=== PATIENT | male | born 1980 | race Caucasian/White ===

== ENCOUNTER 2018-04-20 05:44 | Emergency (ER) | payer BC ==
[2018-04-20] MEDS: PANTOPRAZOLE 40MG INJ (PROTONIX) (C9113) IV (06:45)
[2018-04-20] MEDS: GI COCKTAIL 50ML BTL(HYOSCYAMINE/MAALOX/LIDOCAINE VISCOUS)(1:3:1) PO (06:45)
[2018-04-20 06:52] LABS: BASO # 0.1 10^3/uL (0.0-0.2); EOS # 0.1 10^3/uL (0.0-0.50); EOS % 1.7 % (0.0-3.0); HEMATOCRIT 48.1 % (42.0-52.0); HEMOGLOBIN 17.2 g/dl (13.5-17.5); IMMATURE GRANULOCYTE % 0.2 % (0-3.0); LYMPH # 2.1 10^3/uL (1.5-4.5); LYMPH % 43.2 % (24.0-44.0); MEAN CORPUSCULAR HEMOGLOBIN 31.3 pg (27.0-33.0); MEAN CORPUSCULAR HGB CONC 35.8 g/dl (32.0-36.5); MEAN CORPUSCULAR VOLUME 87.6 fl (80.0-96.0); MONO # 0.4 10^3/uL (0.0-0.8); MONO % 8.3 % (0.0-5.0); NEUTROPHILS # 2.2 10^3/uL (1.8-7.7); NEUTROPHILS % 45.6 % (36.0-66.0); PLATELET COUNT, AUTOMATED 212 10^3/uL (150-450); RED BLOOD COUNT 5.49 10^6/uL (4.30-6.10); RED CELL DISTRIBUTION WIDTH 11.8 % (11.5-14.5); WHITE BLOOD COUNT 4.8 10^3/uL (4.0-10.0)
[2018-04-20 07:04] LABS: ALBUMIN 4.1 GM/DL (3.2-5.2); ALBUMIN/GLOBULIN RATIO 1.21 (1.00-1.93); ALKALINE PHOSPHATASE 51 U/L (45-117); ALT/SGPT 28 U/L (12-78); ANION GAP 8 MEQ/L (8-16); AST/SGOT 25 U/L (7-37); BILIRUBIN,DIRECT 0.2 MG/DL (0.0-0.2); BLOOD UREA NITROGEN 16 MG/DL (7-18); CALCIUM LEVEL 9.5 MG/DL (8.5-10.1); CARBON DIOXIDE LEVEL 28 MEQ/L (21-32); CHLORIDE LEVEL 106 MEQ/L (98-107); CPK CREATINE PHOSPHOKINASE 144 U/L (39-308); CREATININE FOR GFR 1.22 MG/DL (0.70-1.30); FREE T4 1.14 NG/DL (0.76-1.46); GLOMERULAR FILTRATION RATE > 60.0 (>60); GLUCOSE, FASTING 96 MG/DL (70-100); POTASSIUM SERUM 3.8 MEQ/L (3.5-5.1); SODIUM LEVEL 142 MEQ/L (136-145); TOTAL PROTEIN 7.5 GM/DL (6.4-8.2); TROPONIN I < 0.02 NG/ML (< 0.10)
[2018-04-20 07:10] LABS: CK-MB VALUE MASS 1.6 NG/ML (<3.6); MB/CK RELATIVE INDEX 1.11 (< OR =4)
== END 2018-04-20 07:39 | disposition home or self-care (01) ==
LOC: M ED 05:44
DX: K21.0 Gastro-esophageal reflux disease with esophagitis (principal); R94.31 Abnormal electrocardiogram [ECG] [EKG]; Z87.19 Personal history of other diseases of the digestive system; Z87.891 Personal history of nicotine dependence; Z88.0 Allergy status to penicillin; Z79.899 Other long term (current) drug therapy
CPT/HCPCS: C9113

== ENCOUNTER → 2018-09-17 | Outpatient (CLI) | payer BC ==
[~2018-09-17] MED LIST: OMEP40CA2 PO
--- NOTE | 2018-09-17 16:39 | REP ---
Chest two views HISTORY: Cough Comparison: None Patchy density is present in the left lower lobe consistent with an infiltrate. The right lung is clear. The heart is normal in size. The pulmonary vasculature is normal in appearance. The bony structure is intact. IMPRESSION: Left lower lobe infiltrate. Electronically Signed by Shaka Michel MD 09/17/2018 04:30 P
== END ==
LOC: M WUC 15:28
PROVIDERS: ATTEND Physician Assistant
DX: R91.8 Other nonspecific abnormal finding of lung field (principal); R05 Cough; R50.9 Fever, unspecified

== ENCOUNTER 2018-12-28 10:45 | Emergency (ER) | payer BC ==
[~2018-12-28] VITALS: Ht 182.9 cm; Wt 97.7 kg
[2018-12-28] MEDS ORDERED: IBUP200C27 PO (10:55)
[2018-12-28] MEDS ORDERED: ONDANSETRON 4 MG ORAL DISINTEGRATING TAB (Q0162 PER 1MG) PO ONE (11:15)
[2018-12-28] MEDS ORDERED: MECLIZINE 25 MG TABLET PO ONE (11:15)
--- NOTE | 2018-12-28 11:39 | REP ---
CT Head without contrast HISTORY: Headache COMPARISON: None There is no intraparenchymal hemorrhage, acute infarct, mass or midline shift. The ventricular system is normal in appearance. There is no extra cerebral collection. There is no fracture. The visualized sinuses are clear. IMPRESSION: There is no intracranial lesion. Electronically Signed by Shaka Michel MD 12/28/2018 11:30 A
[2018-12-28] MEDS ORDERED: FLON1SPR NARES (12:26)
[2018-12-28] MEDS ORDERED: IBUP80TA PO (12:26)
[2018-12-28] MEDS ORDERED: ONDA4TAB6 PO (12:26)
[2018-12-28] MEDS ORDERED: MECL-68 PO (12:26)
[2018-12-28] MEDS ORDERED: ZYRTTAB8 PO (12:26)
[2018-12-28 12:38] VITALS: BP 124/74
== END 2018-12-28 12:39 | disposition home or self-care (01) ==
LOC: M ED 10:45
DX: H81.399 Other peripheral vertigo, unspecified ear (principal); J30.9 Allergic rhinitis, unspecified; Z88.0 Allergy status to penicillin
CPT/HCPCS: 70450; 99284; Q0162

== ENCOUNTER → 2019-02-14 | Outpatient (CLI) | payer BC ==
[~2019-02-14] MED LIST changes: +FLON1SPR NARES; +IBUP200C27 PO; +IBUP80TA PO; +MECL-68 PO; +ONDA4TAB6 PO; +ZYRTTAB8 PO
[2019-02-14 17:56] LABS: EOS # 0.1 10^3/uL (0.0-0.50); EOS % 1.7 % (0.0-3.0); HEMATOCRIT 47.4 % (42.0-52.0); HEMOGLOBIN 16.2 g/dl (13.5-17.5); LYMPH % 48.2 % (24.0-44.0); MEAN CORPUSCULAR HEMOGLOBIN 30.9 pg (27.0-33.0); MEAN CORPUSCULAR HGB CONC 34.2 g/dl (32.0-36.5); MEAN CORPUSCULAR VOLUME 90.5 fl (80.0-96.0); MONO # 0.3 10^3/uL (0.0-0.8); MONO % 8.3 % (0.0-5.0); NEUTROPHILS # 1.7 10^3/uL (1.8-7.7); NEUTROPHILS % 40.6 % (36.0-66.0); PLATELET COUNT, AUTOMATED 213 10^3/uL (150-450); RED BLOOD COUNT 5.24 10^6/uL (4.30-6.10); WHITE BLOOD COUNT 4.1 10^3/uL (4.0-10.0)
[2019-02-14 18:02] LABS: ALBUMIN 4.2 GM/DL (3.2-5.2); ALT/SGPT 27 U/L (12-78); BILIRUBIN,TOTAL 1.3 MG/DL (0.2-1.0); BLOOD UREA NITROGEN 21 MG/DL (7-18); CARBON DIOXIDE LEVEL 30 MEQ/L (21-32); CHLORIDE LEVEL 104 MEQ/L (98-107); CHOLESTEROL LEVEL 227 MG/DL (<200); CHOLESTEROL RISK RATIO 2.837 (<5); CREATININE FOR GFR 1.12 MG/DL (0.70-1.30); FREE T4 1.07 NG/DL (0.76-1.46); GLOMERULAR FILTRATION RATE > 60.0 (>60); GLUCOSE, FASTING 92 MG/DL (70-100); HDL CHOLESTEROL 80 MG/DL (>40); LDL CHOLESTEROL 135 MG/DL (<100); NON-HDL-C 147 MG/DL; POTASSIUM SERUM 4.6 MEQ/L (3.5-5.1); SODIUM LEVEL 140 MEQ/L (136-145); TOTAL PROTEIN 7.1 GM/DL (6.4-8.2); TRIGLYCERIDES LEVEL 58 MG/DL (<150)
[2019-02-14 18:11] LABS: HEMOGLOBIN A1c 4.9 %
[2019-02-15 11:03] LABS: THYROID PEROXIDASE ANTIBODY 28.6 U/ML (<60.0)
[2019-02-17 14:09] LABS: THRYOGLOBULIN ANTIBODIES (ATA) < 1.0 IU/mL (0.0-0.9); VITAMIN D 1,25 DIHYDROXY 51.4 pg/mL (19.9-79.3)
== END ==
LOC: M WUC 09:15
PROVIDERS: ATTEND Physician Assistant
DX: Z13.29 Encounter for screening for other suspected endocrine disorder (principal)